=== PATIENT | female | born 1950 | race Caucasian/White ===

== ENCOUNTER → 2017-12-10 | Outpatient (CLI) | payer MEDICARE ==
[2017-12-10 11:21] LABS: ALANINE AMINOTRANSFERASE 71 U/L (12-78); ALBUMIN 3.5 g/dL (3.4-5.0); ANION GAP 9 mmol/L (5-15); CALCIUM 9.3 mg/dL (8.5-10.1); CHLORIDE 110 mmol/L (98-107); CREATININE 1.06 mg/dL (0.55-1.02)
[2017-12-10 11:23] LABS: ALKALINE PHOSPHATASE 82 U/L (45-117); BILIRUBIN,TOTAL 0.4 mg/dL (0.2-1.0); TOTAL PROTEIN 7.3 g/dL (6.4-8.2)
== END | disposition home or self-care (01) ==
LOC: STAR 09:58
PROVIDERS: ATTEND Surgery
DX: Z01.818 Encounter for other preprocedural examination (principal); C50.412 Malignant neoplasm of upper-outer quadrant of left female breast
CPT/HCPCS: 36415; 80053

== ENCOUNTER → 2017-12-14 | Outpatient (CLI) | payer MEDICARE ==
[~2017-12-14] MED LIST: GABA300C10 PO; LEVO112T2 PO; LIDOCAINE 1%, 20ML ONE; LIDOCAINE 1%-EPI 1:100K, 20ML ONE; LOPE1TAB4 PO; SODIUM BICARBONATE 4.0%, 5ML ONE; SPIR50TA4 PO
== END | disposition home or self-care (01) ==
LOC: CFH 08:43
PROVIDERS: ATTEND Surgery
DX: C50.912 Malignant neoplasm of unspecified site of left female breast (principal)
CPT/HCPCS: 19285; 77065; J3490

== ENCOUNTER 2017-12-20 12:01 | Day surgery (SDC) | payer MEDICARE ==
[~2017-12-20] VITALS: Ht 162.6 cm; Wt 74.1 kg
[~2017-12-20 12:01] MED LIST changes: -LIDOCAINE 1%, 20ML ONE; -LIDOCAINE 1%-EPI 1:100K, 20ML ONE; -SODIUM BICARBONATE 4.0%, 5ML ONE
[2017-12-20] MEDS ORDERED: LACTATED RINGERS 1,000 ML IV SCH (12:27)
[2017-12-20] MEDS ORDERED: ACETAMINOPHEN 500 MG TABLET PO ONE (12:30)
[2017-12-20] MEDS ORDERED: GABAPENTIN 300 MG CAPSULE PO ONE (12:30)
[2017-12-20] MEDS ORDERED: ONDANSETRON ODT 8 MG PO ONE (12:30)
[2017-12-20] MEDS ORDERED: SCOPOLAMINE PATCH, 1.5MG PATCH.TD72 TD ONE (12:30)
[2017-12-20] MEDS ORDERED: GLYCOPYRROLATE 0.2MG/1ML, 5ML ONE (13:03)
[2017-12-20] MEDS ORDERED: PROPOFOL 10 MG/ML, 20ML ONE (13:03)
[2017-12-20] MEDS ORDERED: NEOSTIGMINE 1 MG/ML, 10ML ONE (13:03)
[2017-12-20] MEDS ORDERED: ROCURONIUM 10MG/ML,5ML ONE (13:03)
[2017-12-20] MEDS ORDERED: MIDAZOLAM 1 MG/ML, 2ML ONE (13:03)
[2017-12-20] MEDS ORDERED: DEXAMETHASONE 4 MG/ML, 1ML ONE (13:03)
[2017-12-20] MEDS ORDERED: SUCCINYLCHOLINE 20 MG/ML, 10ML ONE (13:03)
[2017-12-20] MEDS ORDERED: FENTANYL PF 250 MCG/5ML ONE (13:03)
[2017-12-20] MEDS ORDERED: CEFAZOLIN 1,000 MG ONE (13:03)
[2017-12-20] MEDS ORDERED: BUPIVACAINE/PF-EPI 0.5% 1:200K ONE (14:20)
[2017-12-20] MEDS ORDERED: ISOSULFAN BLUE 10 MG/ML, 5ML IV ONE (14:20)
[2017-12-20] MEDS ORDERED: LIDOCAINE 4%, 4 ML SYR/CANN TP ONE (14:41)
[2017-12-20] MEDS ORDERED: OXYcodone 5 MG/5 ML ORAL.SOL UDC PO PRN (15:30)
[2017-12-20] MEDS ORDERED: LORazepam 2 MG/ML, 1ML IVPush PRN (15:30)
[2017-12-20] MEDS ORDERED: PROMETHAZINE 25 MG/ML, 1ML IV PRN (15:30)
[2017-12-20] MEDS ORDERED: ONDANSETRON 2MG/ML, 2ML IV PRN (15:30)
[2017-12-20] MEDS ORDERED: ONDANSETRON ODT 8 MG PO PRN (15:30)
[2017-12-20] MEDS ORDERED: EPHEDRINE 50 MG/ML, 1ML ONE ×2 (15:57)
[2017-12-20] MEDS ORDERED: FENTANYL PF 100 MCG/2ML ONE ×2 (16:14→16:57)
[2017-12-20] MEDS ORDERED: OXYcodone 5 MG/5 ML ORAL.SOL UDC ONE (16:57)
[2017-12-20] MEDS: FENTANYL PF 100 MCG/2ML IV PRN ×2 (17:01→17:11)
[2017-12-20] MEDS ORDERED: MORPHINE SULFATE 4 MG/ML, 1ML ONE ×2 (17:12→17:41)
[2017-12-20] MEDS: MORPHINE SULFATE 4 MG/ML, 1ML IVPush PRN ×3 (17:17→17:43)
== END 2017-12-20 19:35 | disposition home or self-care (01) ==
LOC: OUT 12:01 → EDSTATUS 15:00 → RAD 19:35
PROVIDERS: ATTEND Surgery
DX: C50.112 Malignant neoplasm of central portion of left female breast (principal); R59.1 Generalized enlarged lymph nodes; F41.9 Anxiety disorder, unspecified; J45.909 Unspecified asthma, uncomplicated; E03.9 Hypothyroidism, unspecified; E78.00 Pure hypercholesterolemia, unspecified; Z98.890 Other specified postprocedural states; Z87.39 Personal history of other diseases of the musculoskeletal system and connective tissue; Z72.89 Other problems related to lifestyle
CPT/HCPCS: 19301; 19318; 19380; 38525; 38792; 88305; 88307; 88329; 88331; 88333; 88334; A9541; C1729; J0330; J0690; J1100; J2250; J2704; J2710; J3010; J3490; J7120; Q0162

== ENCOUNTER → 2017-12-31 | Outpatient (CLI) | payer MEDICARE ==
[~2017-12-31] MED LIST changes: +GADOBUTROL 10 MMOL/10 ML VIAL ONE
== END | disposition home or self-care (01) ==
LOC: CFH 09:38
PROVIDERS: ATTEND Surgery
DX: N60.01 Solitary cyst of right breast (principal); N60.02 Solitary cyst of left breast; C50.412 Malignant neoplasm of upper-outer quadrant of left female breast
CPT/HCPCS: A9585; C8908

== ENCOUNTER 2018-01-03 05:36 | Day surgery (SDC) | payer MEDICARE ==
[~2018-01-03] VITALS: Ht 162.6 cm; Wt 73.0 kg
[~2018-01-03 05:36] MED LIST changes: -GADOBUTROL 10 MMOL/10 ML VIAL ONE
[2018-01-03 06:07] VITALS: BP 143/87
[2018-01-03] MEDS ORDERED: ONDANSETRON ODT 8 MG PO ONE (06:30)
[2018-01-03] MEDS ORDERED: SCOPOLAMINE PATCH, 1.5MG PATCH.TD72 TD ONE (06:30)
[2018-01-03] MEDS ORDERED: ACETAMINOPHEN 500 MG TABLET PO ONE (06:30)
[2018-01-03] MEDS ORDERED: GABAPENTIN 300 MG CAPSULE PO ONE (06:30)
[2018-01-03] MEDS ORDERED: PLEASE ENTER HEIGHT AND WEIGHT MC SCH (06:30)
[2018-01-03] MEDS ORDERED: MIDAZOLAM 1 MG/ML, 2ML ONE (06:57)
[2018-01-03] MEDS ORDERED: LACTATED RINGERS 1,000 ML IV SCH (06:57)
[2018-01-03] MEDS ORDERED: FENTANYL PF 250 MCG/5ML ONE (06:58)
[2018-01-03] MEDS ORDERED: ROCURONIUM 10MG/ML,5ML ONE (06:59)
[2018-01-03] MEDS ORDERED: PROPOFOL 10 MG/ML, 20ML ONE (06:59)
[2018-01-03] MEDS ORDERED: ISOSULFAN BLUE 10 MG/ML, 5ML IV ONE (07:03)
[2018-01-03] MEDS ORDERED: BUPIVACAINE/PF-EPI 0.5% 1:200K ONE (07:03)
[2018-01-03] MEDS ORDERED: DEXAMETHASONE 4 MG/ML, 1ML ONE (07:21)
[2018-01-03] MEDS ORDERED: CEFAZOLIN 1,000 MG ONE (07:47)
[2018-01-03] MEDS ORDERED: hydrALAzine 20 MG/ML, 1ML IV PRN (08:30)
[2018-01-03] MEDS ORDERED: LABETALOL 5MG/ML, 20ML IV PRN (08:30)
[2018-01-03] MEDS ORDERED: OXYcodone 5 MG/5 ML ORAL.SOL UDC PO PRN (08:30)
[2018-01-03] MEDS ORDERED: ONDANSETRON 2MG/ML, 2ML IV PRN (08:30)
[2018-01-03] MEDS ORDERED: MEPERIDINE/PF 25MG/0.5ML IVPush PRN (08:30)
[2018-01-03] MEDS ORDERED: FENTANYL PF 100 MCG/2ML ONE (08:30)
[2018-01-03] MEDS ORDERED: OXYcodone 5 MG/5 ML ORAL.SOL UDC ONE (08:30)
[2018-01-03] MEDS ORDERED: PROMETHAZINE 12.5 MG SUPP PR PRN (08:30)
[2018-01-03] MEDS: FENTANYL PF 100 MCG/2ML IV PRN ×2 (08:35→08:40)
[2018-01-03] MEDS ORDERED: HYDROmorphone 2 MG/ML, 1ML ONE (08:45)
[2018-01-03] MEDS: HYDROmorphone 2 MG/ML, 1ML IV PRN ×3 (08:47→09:00)
== END 2018-01-03 10:30 | disposition home or self-care (01) ==
LOC: OUT 05:36
PROVIDERS: ATTEND Surgery
DX: C50.912 Malignant neoplasm of unspecified site of left female breast (principal); J45.909 Unspecified asthma, uncomplicated; F41.9 Anxiety disorder, unspecified; E03.9 Hypothyroidism, unspecified; F19.90 Other psychoactive substance use, unspecified, uncomplicated; E26.9 Hyperaldosteronism, unspecified; Z79.899 Other long term (current) drug therapy; Z98.890 Other specified postprocedural states; Z72.89 Other problems related to lifestyle
CPT/HCPCS: 19301; 19366; 88307; J0690; J1100; J1170; J2250; J2704; J3010; J7120; Q0162; 88305

== ENCOUNTER → 2018-01-16 | Outpatient (CLI) | payer MEDICARE | END | disposition home or self-care (01) | LOC: PETCFH 10:09 | PROVIDERS: ATTEND Internal Medicine Hematology & Oncology | DX: I26.99 Other pulmonary embolism without acute cor pulmonale (principal); I77.810 Thoracic aortic ectasia; K76.0 Fatty (change of) liver, not elsewhere classified; K80.20 Calculus of gallbladder without cholecystitis without obstruction; D25.9 Leiomyoma of uterus, unspecified; M47.9 Spondylosis, unspecified; C50.412 Malignant neoplasm of upper-outer quadrant of left female breast | CPT/HCPCS: 71260; 74177; 78306; A9503; Q9967 ==

== ENCOUNTER → 2018-01-21 | Outpatient (CLI) | payer MEDICARE | END | disposition home or self-care (01) | LOC: ROC 08:56 | PROVIDERS: ATTEND Radiology Radiation Oncology | DX: C50.412 Malignant neoplasm of upper-outer quadrant of left female breast (principal) | CPT/HCPCS: G0463 ==

== ENCOUNTER → 2018-01-30 | Outpatient (CLI) | payer MEDICARE | END | disposition home or self-care (01) | LOC: CFH 14:54 | PROVIDERS: ATTEND Internal Medicine Hematology & Oncology | DX: M71.22 Synovial cyst of popliteal space [Baker], left knee (principal); M71.21 Synovial cyst of popliteal space [Baker], right knee; R60.0 Localized edema; C50.412 Malignant neoplasm of upper-outer quadrant of left female breast | CPT/HCPCS: 93970 ==

== ENCOUNTER → 2018-02-11 | Outpatient (CLI) | payer MEDICARE | END | disposition home or self-care (01) | LOC: ROC 11:45 | PROVIDERS: ATTEND Radiology Radiation Oncology | DX: Z08 Encounter for follow-up examination after completed treatment for malignant neoplasm (principal); C50.412 Malignant neoplasm of upper-outer quadrant of left female breast | CPT/HCPCS: G0463 ==

== ENCOUNTER → 2018-05-20 | Outpatient (CLI) | payer MEDICARE | END | disposition home or self-care (01) | LOC: EDSTATUS 05-15 13:45 → ROC 09:25 | PROVIDERS: ATTEND Radiology Radiation Oncology | DX: Z08 Encounter for follow-up examination after completed treatment for malignant neoplasm (principal); C50.412 Malignant neoplasm of upper-outer quadrant of left female breast | CPT/HCPCS: G0463 ==

== ENCOUNTER → 2018-05-27 | Outpatient (CLI) | payer MEDICARE ==
[~2018-05-27] MED LIST changes: +OMNIPAQUE 350 MG/ML, 100ML BOTTLE ONE
== END | disposition home or self-care (01) ==
LOC: RAD 12:10
PROVIDERS: ATTEND Internal Medicine Hematology & Oncology
DX: I77.810 Thoracic aortic ectasia (principal); C50.412 Malignant neoplasm of upper-outer quadrant of left female breast; Z86.711 Personal history of pulmonary embolism
CPT/HCPCS: 71275; Q9967

== ENCOUNTER → 2018-07-08 | Outpatient (CLI) | payer MEDICARE ==
[~2018-07-08] MED LIST changes: -OMNIPAQUE 350 MG/ML, 100ML BOTTLE ONE
== END | disposition home or self-care (01) ==
LOC: CFH 12:09
PROVIDERS: ATTEND Internal Medicine Hematology & Oncology
DX: Z13.820 Encounter for screening for osteoporosis (principal); M85.89 Other specified disorders of bone density and structure, multiple sites; N95.9 Unspecified menopausal and perimenopausal disorder
CPT/HCPCS: 77080

== ENCOUNTER → 2018-10-14 | Outpatient (CLI) | payer MEDICARE | END | disposition home or self-care (01) | LOC: CFH 13:19 | PROVIDERS: ATTEND Physician Assistant | DX: C50.912 Malignant neoplasm of unspecified site of left female breast (principal) | CPT/HCPCS: 76642; 77066; G0279 ==

== ENCOUNTER 2020-08-24 07:57 | Day surgery (SDC) | payer MEDICARE ==
[~2020-08-24] VITALS: Ht 162.6 cm; Wt 73.6 kg
[~2020-08-24 07:57] MED LIST changes: +ALLO100T30 PO; +ROPI0.254 PO
[2020-08-24] MEDS ORDERED: MSM PO (08:35)
[2020-08-24] MEDS ORDERED: VITAMIN D PO (08:35)
[2020-08-24] MEDS ORDERED: IMODIUM PO (08:35)
[2020-08-24 08:36] VITALS: BP 137/90
[2020-08-24] MEDS ORDERED: CHLORHEXIDINE 15 ML UDC ONE (08:48)
[2020-08-24] MEDS ORDERED: CHLORHEXIDINE 15 ML UDC PO ONE (09:00)
[2020-08-24] MEDS ORDERED: LACTATED RINGERS 1,000 ML IV SCH (09:00)
[2020-08-24] MEDS ORDERED: FENTANYL PF 100 MCG/2ML ONE (09:09)
[2020-08-24] MEDS ORDERED: PROPOFOL 10 MG/ML, 20ML ONE (09:10)
[2020-08-24] MEDS ORDERED: ONDANSETRON 2MG/ML, 2ML ONE ×2 (09:10→09:29)
[2020-08-24] MEDS ORDERED: ROCURONIUM 10MG/ML,5ML ONE (09:10)
[2020-08-24] MEDS ORDERED: SUCCINYLCHOLINE 20 MG/ML, 10ML ONE (09:10)
[2020-08-24] MEDS ORDERED: DEXAMETHASONE 4 MG/ML, 5ML ONE (09:10)
[2020-08-24] MEDS ORDERED: OMNIPAQUE 350 MG/ML, 50 ML BOTTLE ONE (09:22)
[2020-08-24] MEDS ORDERED: hydrALAzine 20 MG/ML, 1ML IV PRN (09:30)
[2020-08-24] MEDS ORDERED: MEPERIDINE/PF 25MG/0.5ML IVPush PRN (09:30)
[2020-08-24] MEDS ORDERED: PROMETHAZINE 25 MG/ML, 1ML IVPush PRN (09:30)
[2020-08-24] MEDS ORDERED: ONDANSETRON 2MG/ML, 2ML IVPush PRN (09:30)
[2020-08-24] MEDS ORDERED: HYDROmorphone 1 MG/ML, 1ML INJ IVPush PRN (09:30)
[2020-08-24] MEDS ORDERED: DIAZEPAM 5 MG/ML, 2ML IVPush PRN (09:30)
[2020-08-24] MEDS ORDERED: FENTANYL PF 100 MCG/2ML IV PRN (09:30)
[2020-08-24] MEDS ORDERED: OXYcodone 5 MG/5 ML ORAL.SOL UDC PO PRN (09:30)
[2020-08-24] MEDS ORDERED: LABETALOL 5MG/ML, 20ML IV PRN (09:30)
[2020-08-24] MEDS ORDERED: DIPHENHYDRAMINE 50 MG/ML, 1ML IVPush PRN ×2 (09:30)
[2020-08-24] MEDS ORDERED: ALBUTEROL SULFATE 2.5 MG/3 ML NPPB PRN (09:30)
[2020-08-24] MEDS ORDERED: PROMETHAZINE 12.5 MG SUPP PR PRN (09:30)
[2020-08-24] MEDS ORDERED: EPHEDRINE 50 MG/ML, 1ML IVPush PRN (09:30)
[2020-08-24] MEDS ORDERED: MIDAZOLAM 1 MG/ML, 2ML IV PRN (09:30)
== END 2020-08-24 11:40 | disposition home or self-care (01) ==
LOC: OUT 07:57
PROVIDERS: ATTEND Internal Medicine
DX: K80.20 Calculus of gallbladder without cholecystitis without obstruction (principal); K86.89 Other specified diseases of pancreas; Z20.822 Contact with and (suspected) exposure to COVID-19; Z79.890 Hormone replacement therapy; Z79.899 Other long term (current) drug therapy; Z85.3 Personal history of malignant neoplasm of breast; Z98.890 Other specified postprocedural states
CPT/HCPCS: 43242; 43262; 74328; 88172; 88173; 88305; 93005; C1769; J0330; J1100; J2405; J2704; J3010; J7120; Q9967; U0003; U0005

== ENCOUNTER 2020-08-26 06:24 | Day surgery (SDC) | payer MEDICARE ==
[~2020-08-26] VITALS: Ht 162.6 cm; Wt 74.6 kg
[~2020-08-26 06:24] MED LIST changes: +IMODIUM PO; +MSM PO; +VITAMIN D PO
[2020-08-26] MEDS ORDERED: BUPIVACAINE/PF 0.5% ONE (06:53)
[2020-08-26] MEDS ORDERED: EPINEPHRINE 1 MG/ML, 1ML ONE (06:53)
[2020-08-26 07:11] VITALS: BP 114/77
[2020-08-26 07:14] VITALS: BP 114/77
[2020-08-26] MEDS ORDERED: GABA600T7 PO (07:21)
[2020-08-26] MEDS ORDERED: LEVO88TA2 PO (07:21)
[2020-08-26] MEDS ORDERED: LEVO100T PO (07:21)
[2020-08-26] MEDS ORDERED: ALLO100T30 PO (07:21)
[2020-08-26] MEDS ORDERED: INDOCYANINE GREEN 25 MG VIAL ONE (07:27)
[2020-08-26] MEDS ORDERED: CHLORHEXIDINE 15 ML UDC PO ONE (07:30)
[2020-08-26] MEDS ORDERED: LACTATED RINGERS 1,000 ML IV SCH (07:30)
[2020-08-26] MEDS ORDERED: INDOCYANINE GREEN 25 MG VIAL IV ONE (07:30)
[2020-08-26] MEDS ORDERED: MIDAZOLAM 1 MG/ML, 2ML ONE (08:15)
[2020-08-26] MEDS ORDERED: FENTANYL PF 250 MCG/5ML ONE (08:15)
[2020-08-26] MEDS ORDERED: CEFOTETAN 2 GM ONE (08:57)
[2020-08-26] MEDS ORDERED: hydrALAzine 20 MG/ML, 1ML IV PRN (09:00)
[2020-08-26] MEDS ORDERED: FENTANYL PF 100 MCG/2ML IV PRN (09:00)
[2020-08-26] MEDS ORDERED: OXYcodone 5 MG/5 ML ORAL.SOL UDC PO PRN (09:00)
[2020-08-26] MEDS ORDERED: HYDROmorphone 1 MG/ML, 1ML INJ IVPush PRN (09:00)
[2020-08-26] MEDS ORDERED: ONDANSETRON 2MG/ML, 2ML IVPush PRN (09:00)
[2020-08-26] MEDS ORDERED: LABETALOL 5MG/ML, 20ML IV PRN (09:00)
[2020-08-26] MEDS ORDERED: ACETAMINOPHEN 325 MG TABLET PO PRN (09:00)
[2020-08-26] MEDS ORDERED: MEPERIDINE/PF 25MG/0.5ML IVPush PRN (09:00)
[2020-08-26] MEDS ORDERED: PROMETHAZINE 25 MG/ML, 1ML IVPush PRN (09:00)
[2020-08-26] MEDS ORDERED: KETOROLAC 30 MG/1 ML ONE (09:05)
[2020-08-26] MEDS ORDERED: PROPOFOL 10 MG/ML, 20ML ONE (09:06)
[2020-08-26] MEDS ORDERED: ROCURONIUM 10MG/ML,5ML ONE (09:06)
[2020-08-26] MEDS ORDERED: EPHEDRINE 50 MG/ML, 1ML ONE (09:06)
[2020-08-26] MEDS ORDERED: ONDANSETRON 2MG/ML, 2ML ONE (09:06)
[2020-08-26] MEDS ORDERED: DEXAMETHASONE 4 MG/ML, 1ML ONE (09:44)
[2020-08-26] MEDS ORDERED: ONDA4TAB7 PO (10:28)
[2020-08-26] MEDS ORDERED: HYDR-2214 PO (10:28)
== END 2020-08-26 12:30 | disposition home or self-care (01) ==
LOC: OUT 06:24
PROVIDERS: ATTEND Surgery
DX: K80.20 Calculus of gallbladder without cholecystitis without obstruction (principal); K66.0 Peritoneal adhesions (postprocedural) (postinfection); K42.9 Umbilical hernia without obstruction or gangrene; F41.9 Anxiety disorder, unspecified; E03.9 Hypothyroidism, unspecified; F12.90 Cannabis use, unspecified, uncomplicated; J45.909 Unspecified asthma, uncomplicated; Z79.899 Other long term (current) drug therapy; Z98.890 Other specified postprocedural states; Z72.89 Other problems related to lifestyle; Z85.3 Personal history of malignant neoplasm of breast
CPT/HCPCS: 47562; J0171; J1100; J1885; J2250; J2405; J2704; J3010; J7120

== ENCOUNTER → 2020-10-14 | Outpatient (CLI) | payer MEDICARE ==
[~2020-10-14] MED LIST changes: +ANAS1TAB49 PO; +GABA600T7 PO; +HYDR-2214 PO; +LEVO100T PO; +LEVO88TA2 PO; +ONDA4TAB7 PO
[2020-10-14 12:37] LABS: BASOPHILS % (AUTO) 0 % (0-1); EOSINOPHILS % (AUTO) 0 % (1-7); LYMPHOCYTES % (AUTO) 11 % (22-44); MEAN CORPUSCULAR HEMOGLOBIN 28.2 pg (27.0-34.8); MEAN PLATELET VOLUME 8.1 fL (7.4-10.4); MONOCYTES % (AUTO) 4 % (2-9); NEUTROPHILS % (AUTO) 85 % (42-75); PLATELET COUNT 245 x10^3/uL (130-400); RED BLOOD COUNT 4.58 x10^6/uL (3.82-5.3); RED CELL DISTRIBUTION WIDTH 16.6 % (9.6-15.2)
[2020-10-14 12:51] LABS: ALANINE AMINOTRANSFERASE 39 U/L (12-78); ALBUMIN 3.9 g/dL (3.4-5.0); ANION GAP 4 mmol/L (5-15); CALCIUM 10.1 mg/dL (8.5-10.1); CHLORIDE 107 mmol/L (98-107)
[2020-10-14 12:54] LABS: ALKALINE PHOSPHATASE 115 U/L (45-117); BILIRUBIN,TOTAL 0.5 mg/dL (0.2-1.0); CREATININE 0.86 mg/dL (0.55-1.02); TOTAL PROTEIN 7.6 g/dL (6.4-8.2)
== END | disposition home or self-care (01) ==
LOC: STAR 11:25
PROVIDERS: ATTEND Surgery
DX: Z01.812 Encounter for preprocedural laboratory examination (principal); Z20.822 Contact with and (suspected) exposure to COVID-19
CPT/HCPCS: 36415; 71046; 80053; 85025; 93005; U0003; U0005